=== PATIENT | male | born 1945 ===

== ENCOUNTER 2021-10-19 18:12 | Emergency (ER) | payer OTHER ==
[~2021-10-19] VITALS: Ht 167.6 cm; Wt 68.0 kg
[2021-10-19 19:24] LABS: BASOPHILS ABSOLUTE AUTO 0.08 K/mm3 (0.00-0.23); BASOPHILS PERCENT AUTO 1 % (0-2); EOSINOPHILS ABSOLUTE AUTO 0.01 K/mm3 (0.00-0.68); EOSINOPHILS PERCENT AUTO 0 % (0-6); Hematocrit 29.3 % (37.0-53.0); Hemoglobin 9.5 g/dL (13.5-17.5); IMMATURE GRAN ABSOLUTE AUTO 0.09 K/mm3 (0.00-0.10); IMMATURE GRAN PERCENT AUTO 1 % (0-1); LYMPHOCYTES ABSOLUTE AUTO 0.64 K/mm3 (0.84-5.20); LYMPHOCYTES PERCENT AUTO 6 % (21-46); MONOCYTES ABSOLUTE AUTO 0.94 K/mm3 (0.16-1.47); MONOCYTES PERCENT AUTO 9 % (4-13); Mean Corpuscular HGB 29.6 pg (26.0-34.0); Mean Corpuscular HGB Conc 32.4 g/dL (31.5-36.5); Mean Corpuscular Volume 91 fL (80-100); Mean Platelet Volume 9.9 fL (9.1-12.4); NEUTROPHILS ABSOLUTE AUTO 9.03 K/mm3 (1.96-9.15); NEUTROPHILS PERCENT AUTO 84 % (41-73); Platelet Count 207 K/mm3 (150-400); RDW Coefficient Variation 14.5 % (11.7-14.2); RDW Standard Deviation 49.2 fL (35.1-46.3); Red Blood Cell Count 3.21 M/mm3 (4.30-5.90); White Blood Cell Count 10.79 K/mm3 (4.00-11.30)
[2021-10-19 19:43] LABS: Albumin/Globulin Ratio 0.8 (0.8-1.8); Bilirubin, Total 0.3 mg/dL (0.1-1.0); Bun/Creatinine Ratio 14.5 (12.0-20.0); Calcium, Blood 8.9 mg/dL (8.5-10.1); Creatinine, Blood 4.15 mg/dL (0.60-1.20); Potassium, Blood 4.8 mmol/L (3.5-5.5)
== END 2021-10-19 23:47 | disposition left against medical advice (07) ==
LOC: ER 18:12
PROVIDERS: Student in an Organized Health Care Education/Training Program
DX: R53.83 Other fatigue (principal); R68.83 Chills (without fever); Z53.21 Procedure and treatment not carried out due to patient leaving prior to being seen by health care provider
CPT/HCPCS: 80053; 85025

== ENCOUNTER 2022-05-14 10:29 | Day surgery (SDC) | payer OTHER ==
[~2022-05-14] VITALS: Ht 167.6 cm; Wt 76.7 kg
[2022-05-14] MEDS ORDERED: CARV25 PO (10:35)
[2022-05-14] MEDS ORDERED: THERA-D2000 UNIT PO (10:35)
[2022-05-14] MEDS ORDERED: AMLO10 PO (10:35)
[2022-05-14] MEDS ORDERED: FERREX 150 FOR1 EACH PO (10:36)
[2022-05-14] MEDS ORDERED: SODBIC650 PO (10:36)
[2022-05-14] MEDS ORDERED: [UNRECOGNIZED DRUG - OTHER] PO (11:27)
--- NOTE | 2022-05-14 14:30 | NUR ---
ASSUMED CARE OF PT. PT AWAKE AND CONVERSING APPROPRIATELY; DENIES PAIN POST PROCEDURE. MONITOR SR 60'S, B/P 159/88, SPO2 99% RA, AFEBRILE. R CHEST-PERMCATH SITE NO SWELLING/HEMATOMA, BIOPATCH AND TEGADERM DRSG INTACT. PT TAKING SIPS OF H2O WITHOUT ISSUE.
--- NOTE | 2022-05-14 15:25 | NUR ---
PT TOOK LUNCH WITHOUT ISSUE.
--- NOTE | 2022-05-14 16:20 | NUR ---
PT DRESSED SELF WITHOUT ISSUE, SITE UNCHANGED; IV REMOVED-CANNULA INTACT.
--- NOTE | 2022-05-14 16:30 | NUR ---
PT RECEIVED DISCHARGE INSTRUCTIONS, MED LIST AND AFTER CARE INSTRUCTIONS; VERBALIZED GOOD UNDERSTANDING. PT LEFT FACILITY VIA W/C, CONDITION STABLE.
== END 2022-05-14 16:30 | disposition home or self-care (01) ==
LOC: MHTC 10:29
DX: N18.6 End stage renal disease (principal); F17.210 Nicotine dependence, cigarettes, uncomplicated
CPT/HCPCS: 36558; 76937; 77001; 99152; 99153; C1750; C1769; C1894; J1644; J2250; J3010; J7030